=== PATIENT | female | born 1965 | race Caucasian/White ===

== ENCOUNTER 2019-12-16 16:30 | Emergency (ER) | payer BC ==
--- NOTE | 2019-12-16 17:11 | EDM.PDOC ---
ED HPI GENERAL MEDICAL PROBLEM - General Time Seen by Provider: 12/16/19 16:37 Source of Information: Reports: Patient History Limitations: Reports: No Limitations - History of Present Illness INITIAL COMMENTS - FREE TEXT/NARRATIVE: Patient presents with blood in stools and abdominal "cramping" pain. The pain started 12-13 hours ago and at first she thought it would be tolerable to go to work. But later she called in sick and didn't go to work. At 11:30 (about 5-6 hours ago) she had "diarrhea" that turned out to be all bright red blood. Since then she has passed blood several more times, 10 in all, with the most recent 5 minutes before coming to ER. She says there isn't any stool in it, just the blood. She took pictures of the last 4 and showed them to me. But the first one was much more than the later times. The ones she showed me she estimates at 2+ table spoons or more each time. She doesn't take any blood thinners but has been using NSAIDS regularly for the past month for shoulder pain/arthritis. She took Aleve bid for 10 days and now Ibuprofen in mornings. No history of GI bleed, polyps, colitis or Crohns. No known hemorrhoids. She had a routine colonoscopy 10 months ago that was normal she says. Abdominal Pain Score (Numeric/FACES): 8 - Related Data Allergies Allergy/AdvReac Type Severity Reaction Status Date / Time banana Allergy Rash Verified 12/16/19 16:51 cefadroxil [From Duricef] Allergy Rash Verified 12/16/19 16:52 latex Allergy Rash Verified 12/16/19 16:51 Home Meds: Home Meds Cholecalciferol (Vitamin D3) [Vitamin D] 5,000 unit PO DAILY 12/16/19 [History] Chromium Amino Acid Chelate [Chromium] 400 mcg PO BID 12/16/19 [History] Fish Oil/Otterbein-3 Fatty Acids [Fish Oil 1,000 MG] 1 each PO DAILY 12/16/19 [History] Levothyroxine 75 mcg PO ACBREAKFAST 12/16/19 [History] Multivitamin [Multivitamins] 1 cap PO DAILY 12/16/19 [History] Omeprazole 20 mg PO DAILY 12/16/19 [History] Phentermine HCl 37.5 mg PO DAILY 12/16/19 [History] Spironolactone [Aldactone] 100 mg PO DAILY 12/16/19 [History] Venlafaxine HCl [Venlafaxine ER] 37.5 mg PO DAILY 12/16/19 [History] metFORMIN [Glucophage XR] 1,000 mg PO BEDTIME 12/16/19 [History] rOPINIRole [Requip] 0.5 mg PO BEDTIME 12/16/19 [History] Past Medical History Musculoskeletal History: Reports: Other (See Below) Other Musculoskeletal History: Spur in her shoulder - Past Surgical History HEENT Surgical History: Reports: Tonsillectomy Social & Family History - Tobacco Use Smoking Status *Q: Never Smoker - Caffeine Use Caffeine Use: Reports: Coffee, Soda ED ROS GENERAL - Review of Systems Review Of Systems: See Below Constitutional: Denies: Fever, Chills, Malaise, Weakness HEENT: Denies: Ear Pain, Throat Pain, Vision Change Respiratory: Reports: Shortness of Breath. Denies: Cough, Hemoptysis Cardiovascular: Denies: Chest Pain, Lightheadedness, Syncope GI/Abdominal: Reports: Abdominal Pain, Bloody Stool, Hematochezia. Denies: Black Stool, Hematemesis, Melena, Nausea, Vomiting : Reports: Other (no vaginal bleeding). Denies: Dysuria, Flank Pain, Hematuria Musculoskeletal: Denies: Neck Pain, Shoulder Pain, Arm Pain, Back Pain Skin: Denies: Cyanosis, Jaundice, Mottled, Pallor, Diaphoresis Neurological: Denies: Confusion, Dizziness, Headache, Seizure, Syncope, Trouble Speaking, Difficulty Walking Psychiatric: Denies: Agitation, Anxiety Hematologic/Lymphatic: Denies: Anemia, Easy Bleeding (not aware of any) ED EXAM, GI/ABD - Physical Exam Exam: See Below Exam Limited By: No Limitations General Appearance: Alert, WD/WN, No Apparent Distress Eyes: Bilateral: Normal Appearance, EOMI Ears: Normal External Exam, Hearing Grossly Normal Nose: Normal Inspection, No Blood Throat/Mouth: Normal Inspection, Normal Lips, Normal Voice, No Airway Compromise Head: Atraumatic, Normocephalic Neck: Normal Inspection, Full Range of Motion Respiratory/Chest: No Respiratory Distress, Lungs Clear, Normal Breath Sounds Cardiovascular: Regular Rate, Rhythm, No Murmur GI/Abdominal Exam: Normal Bowel Sounds, Soft, No Organomegaly, No Distention, No Abnormal Bruit, No Mass, Tender (mild in mid abdomen) Back Exam: Normal Inspection, Full Range of Motion. No: CVA Tenderness (L), CVA Tenderness (R) Extremities: Normal Inspection, Normal Range of Motion Neurological: Alert, Oriented, Normal Cognition, No Motor/Sensory Deficits Psychiatric: Normal Affect, Normal Mood Skin Exam: Warm, Dry, Intact, Normal Color, No Rash Course - Vital Signs Last Recorded V/S: Last Vital Signs Temp Pulse 72 12/16/19 18:01 Resp 18 12/16/19 18:01 BP 161/94 H 12/16/19 18:01 Pulse Ox 98 12/16/19 18:01 - Orders/Labs/Meds Orders: Active Orders 24 hr Category Date Time Status BASIC METABOLIC PANEL,BMP [CHEM] Stat Lab 12/16/19 16:59 Ordered CBC WITH AUTO DIFF [HEME] Stat Lab 12/16/19 16:59 Ordered Labs: Laboratory Tests 12/16/19 Range/Units 17:25 PT 9.5 (9.2-11.2) SEC INR 0.9 (0.9-1.1) APTT 28.3 (22.8-31.4) SEC - Re-Assessments/Exams Free Text/Narrative Re-Assessment/Exam: 12/16/19 18:50 Hgb is 15.0, WBC is 14.1, coags are normal. Patient hasn't passed anymore blood while here in ER. We discussed options including transferring to [place] or [place] for colonoscopy or watching at home for recurrence or worsening. Since it seems to have slowed or stopped, she would like to go home and see how tonight goes at least. I feel this is reasonable. I advised her that if the bleeding persists very frequently she shouldn't wait until Thursday. She should followup with her PCP in a few days at least for recheck of stool and elevated WBC. Patient discharged to home in stable condition. She will not use NSAIDS for now. Departure - Departure Time of Disposition: 18:47 Disposition: Home, Self-Care 01 Condition: Good Clinical Impression: Hematochezia - Discharge Information Instructions: Gastrointestinal Bleeding, [id number] Referrals: PCP,Unknown [Primary Care Provider] - Additional Instructions: No NSAIDS or aspirin for a few days until you follow up with your PCP as they may want to check for occult (trace) blood in the stool. If the bleeding worsens or persists frequently again you should go to ER as an emergent colonoscopy will be necessary to see and treat the bleeding area. Sepsis Event Note (ED) - Evaluation Sepsis Screening Result: No Definite Risk - Focused Exam Vital Signs: Vital Signs Pulse Resp BP Pulse Ox 12/16/19 18:01 72 18 161/94 H 98 12/16/19 16:39 86 18 164/98 H 99 - My Orders Last 24 Hours: My Active Orders 12/16/19 16:59 BASIC METABOLIC PANEL,BMP [CHEM] Stat CBC WITH AUTO DIFF [HEME] Stat - Assessment/Plan Last 24 Hours: My Active Orders 12/16/19 16:59 BASIC METABOLIC PANEL,BMP [CHEM] Stat CBC WITH AUTO DIFF [HEME] Stat
[2019-12-16 18:15] LABS: PTT,PARTIAL THROMBOPLSTIN TIME 28.3 SEC (22.8-31.4)
[2019-12-16 19:04] LABS: ANION GAP 16.6 mmol/L (5-15); CHLORIDE,CL 101 mmol/L (98-115); SODIUM,NA 140 mmol/L (136-145)
== END 2019-12-16 19:05 | disposition home or self-care (01) ==
LOC: KA.ED 16:30
DX: K92.1 Melena (principal); R06.02 Shortness of breath; Z88.1 Allergy status to other antibiotic agents; Z91.040 Latex allergy status; Z91.018 Allergy to other foods
CPT/HCPCS: 36415; 80048; 85025; 85610; 85730; 99283; 99284

== ENCOUNTER 2023-10-13 08:20 | Emergency (ER) | payer OTHER ==
[2023-10-13] MEDS: Diphtheria,Pertussis(Acell),Tetanus Vaccine 0.5 ML Syringe IM ONE (09:45)
[2023-10-13 10:06] VITALS: BP 148/84; PULSE 74
== END 2023-10-13 10:23 | disposition home or self-care (01) ==
LOC: KA.ED 08:20
DX: S00.83XA Contusion of other part of head, initial encounter (principal); M26.4 Malocclusion, unspecified; M25.531 Pain in right wrist; M25.532 Pain in left wrist; M25.512 Pain in left shoulder; R22.0 Localized swelling, mass and lump, head; Z23 Encounter for immunization; Z91.018 Allergy to other foods; Z91.040 Latex allergy status; Z88.8 Allergy status to other drugs, medicaments and biological substances; Z79.84 Long term (current) use of oral hypoglycemic drugs; Z79.890 Hormone replacement therapy; Z79.899 Other long term (current) drug therapy; W18.40XA Slipping, tripping and stumbling without falling, unspecified, initial encounter; Y92.89 Other specified places as the place of occurrence of the external cause; Y99.0 Civilian activity done for income or pay
CPT/HCPCS: 70486; 73030-LT; 73100-LT; 73100-RT; 90471; 90715; 99284-25